=== PATIENT | male | born 1960 | race Caucasian/White ===

== ENCOUNTER 2019-12-17 21:57 | Observation (INO) ==
[2019-12-17] MEDS ORDERED: MORPHINE 4 MG/1 ML VIAL IV STA (22:17)
[2019-12-17] MEDS ORDERED: ASPIRIN 325 MG TABLET PO STA (22:17)
[2019-12-17] MEDS ORDERED: ONDANSETRON 4 MG/2 ML VIAL IV STA (22:17)
[2019-12-17 22:45] LABS: Basophils # 0.1 10*3/uL (0.0-0.2); Eosinophils # 0.2 10*3/uL (0.0-0.87); Eosinophils % 3.5 % (0.00-10.9); Hematocrit 40.5 VOL% (42.0-52.0); Hemoglobin 13.9 GM/DL (14.0-18.0); Immature Granulocytes Absolute 0.07 #; Lymphocytes % 29.2 % (21.2-54.2); Mean Corpuscular HGB Conc 34.3 GM/DL (32-36); Mean Corpuscular Volume 102.3 FL (87-102); Mean Platelet Volume 10.8 FL (9.6-12.0); Monocytes % 6.5 % (1.7-12.7); Neutrophils % 58.8 % (38.7-73.9); Platelet Count 221 T/CUMM (130-400); Red Blood Count 3.96 MC/CUMM (3.8-5.5); Red Cell Distribution Width 11.7 % (9.3-17.3); White Blood Count 6.8 T/CUMM (4-12)
[2019-12-17 22:54] LABS: PT Patient Result 10.9 SECS (9.8-11.9)
[2019-12-17 22:59] LABS: Albumin 3.7 G/DL (3.4-5.0); Bilirubin,Total 0.4 MG/DL (0.2-1.0); Calcium 8.7 MG/DL (8.5-10.1); Osmolality,Calculated 277.5 MOS/KG (273-304); Total Protein 6.7 G/DL (6.4-8.3)
[2019-12-17 23:18] LABS: Apearance,Urine CLEAR (Clear); Bacteria,Urine Occasional /HPF (Few); Bilirubin,Urine Negative (Negative); Blood, Urine Negative (Negative); Glucose,Urine (UA) Negative (Negative); Hyaline Casts,Urine 1 /LPF (0-3); Ketones,Urine Negative (Negative); Mucus,Urine Occasional /LPF (Occasional); Nitrite,Urine Negative (Negative); Protein,Urine Negative; RBC,Urine 1 /HPF (0-4); Squamous Epithelial Cell,Urine Occasional /HPF (0-10); Urine Color Yellow (Yellow); Urine Specific Gravity 1.013 (1.001-1.035); Urine Urobilinogen < 2.0 EU/DL (0.2-1.0); WBC,Urine 2 /HPF (0-6)
[2019-12-17 23:22] LABS: Barbiturates Screen,Urine Negative (Negative); Benzodiazepines Screen,Urine Negative (Negative); Cannabinoid Screen,Urine Negative (Negative); Opiate Screen,Urine Negative (Negative); Phencyclidine Screen,Urine Negative (Negative)
[2019-12-17] MEDS: NITROGLYCERIN SL 0.4 MG TABLET SL PRN (23:51)
[2019-12-18] MEDS: NITROGLYCERIN SL 0.4 MG TABLET SL PRN (01:11)
[2019-12-18] MEDS ORDERED: hydrALAZINE 20 MG/1 ML VIAL IV PRN (01:14)
[2019-12-18] MEDS ORDERED: ACETAMINOPHEN 325 MG TABLET PO PRN (01:14)
[2019-12-18] MEDS ORDERED: ZALEPLON 5 MG CAPSULE PO PRN (01:14)
[2019-12-18] MEDS ORDERED: DOCUSATE SODIUM 100 MG CAPSULE PO PRN (01:14)
[2019-12-18] MEDS ORDERED: ONDANSETRON 4 MG/2 ML VIAL IV PRN (01:14)
[2019-12-18] MEDS: MORPHINE 4 MG/1 ML VIAL IV PRN ×2 (01:49→09:34)
[2019-12-18] MEDS ORDERED: ENOXAPARIN 100 MG/ML SYRINGE SUBCUT SCH (02:00)
[2019-12-18 04:10] LABS: Eosinophils 2 % (0-10); Lymphocytes 31 % (20-55); Segmented Neutrophils 61 % (50-85); Total Cells Counted 100
[2019-12-18 04:15] LABS: Basophils # 0.1 10*3/uL (0.0-0.2); Basophils % 0.9 % (0.0-0.8); Eosinophils # 0.2 10*3/uL (0.0-0.87); Eosinophils % 3.7 % (0.00-10.9); Hematocrit 41.9 VOL% (42.0-52.0); Immature Granulocytes % 0.7 %; Immature Granulocytes Absolute 0.04 #; Lymphocytes % 35.5 % (21.2-54.2); Mean Corpuscular HGB Conc 33.4 GM/DL (32-36); Mean Platelet Volume 10.9 FL (9.6-12.0); Monocytes % 7.5 % (1.7-12.7); Neutrophils % 51.7 % (38.7-73.9); Platelet Count 205 T/CUMM (130-400); Red Blood Count 4.03 MC/CUMM (3.8-5.5); Red Cell Distribution Width 11.8 % (9.3-17.3); White Blood Count 5.7 T/CUMM (4-12)
[2019-12-18 04:16] LABS: Atypical Lymphocytes Few
[2019-12-18 04:17] LABS: Hypochromasia Slight; Platelet Estimate Normal
[2019-12-18 04:39] LABS: Calcium 9.3 MG/DL (8.5-10.1); Osmolality,Calculated 275.5 MOS/KG (273-304); Risk Ratio 2.47; Thyroid Stimulating Hormone 6.07 uIU/ml (0.358-3.74); VLDL CHOLESTEROL 13.6 MG/DL
[2019-12-18] MEDS ORDERED: CLOPIDOGREL 75 MG TABLET PO SCH (09:00)
[2019-12-18] MEDS ORDERED: carvediloL 3.125 MG TABLET PO SCH (09:00)
[2019-12-18] MEDS ORDERED: ASPIRIN CHEW 81 MG TABLET PO SCH (09:00)
[2019-12-18] MEDS ORDERED: buPROPion SR 150 MG TABLET PO SCH (10:30)
[2019-12-18] MEDS ORDERED: ESCITALOPRAM 10 MG TABLET PO SCH (10:30)
[2019-12-18 12:03] VITALS: BP 140/85
[2019-12-18] MEDS ORDERED: GABAPENTIN 600 MG TABLET PO SCH ×2 (15:00)
[2019-12-18] MEDS ORDERED: busPIRone 10 MG TABLET PO SCH ×2 (15:00)
[2019-12-18] MEDS ORDERED: traZODone 50 MG TABLET PO SCH ×2 (21:00)
[2019-12-18] MEDS ORDERED: ARIPiprazole 10 MG TABLET PO SCH ×2 (21:00)
[2019-12-18] MEDS ORDERED: ATORVASTATIN 10 MG TABLET PO SCH (21:00)
[2019-12-19] MEDS ORDERED: buPROPion SR 150 MG TABLET PO SCH (09:00)
[2019-12-19] MEDS ORDERED: ESCITALOPRAM 10 MG TABLET PO SCH (09:00)
== END 2019-12-18 13:58 ==
LOC: N.ED 21:57 → N.EDINP 21:57 → N.CC 12-18 00:42
PROVIDERS: ADMIT Family Medicine; ATTEND Family Medicine

== ENCOUNTER 2020-01-20 22:05 | Inpatient (IN) ==
[2020-01-20 23:14] LABS: Basophils % 0.5 % (0.0-0.8); Eosinophils % 0.9 % (0.00-10.9); Hematocrit 37.5 VOL% (42.0-52.0); Hemoglobin 12.8 GM/DL (14.0-18.0); Immature Granulocytes % 0.6 %; Lymphocytes # 1.5 10*3/uL (1.4-4.0); Lymphocytes % 22.5 % (21.2-54.2); Mean Corpuscular HGB Conc 34.1 GM/DL (32-36); Mean Corpuscular Volume 99.7 FL (87-102); Mean Platelet Volume 10.5 FL (9.6-12.0); Monocytes % 5.9 % (1.7-12.7); Neutrophils % 69.6 % (38.7-73.9); Platelet Count 191 T/CUMM (130-400); Red Blood Count 3.76 MC/CUMM (3.8-5.5); Red Cell Distribution Width 12.2 % (9.3-17.3); White Blood Count 6.6 T/CUMM (4-12)
[2020-01-20] MEDS ORDERED: SODIUM CHLORIDE 0.9% 1,000 ML IV STA (23:14)
[2020-01-20 23:23] LABS: Albumin 3.5 G/DL (3.4-5.0); Bilirubin,Total 0.8 MG/DL (0.2-1.0); Calcium 8.6 MG/DL (8.5-10.1); Osmolality,Calculated 278.5 MOS/KG (273-304); Total Protein 6.4 G/DL (6.4-8.3)
[2020-01-20] MEDS ORDERED: ENOXAPARIN 30 MG/0.3 ML SYRINGE SUBCUT STA (23:29)
[2020-01-20] MEDS ORDERED: MORPHINE 4 MG/1 ML VIAL IV STA (23:29)
[2020-01-20] MEDS ORDERED: ONDANSETRON 4 MG/2 ML VIAL IV ONE (23:29)
[2020-01-20] MEDS ORDERED: ENOXAPARIN 100 MG/ML SYRINGE SUBCUT ONE (23:35)
[2020-01-21] MEDS ORDERED: MORPHINE 4 MG/1 ML VIAL IV STA (00:35)
[2020-01-21] MEDS ORDERED: ONDANSETRON 4 MG/2 ML VIAL IV ONE (00:35)
[2020-01-21] MEDS ORDERED: NITROGLYCERIN DRIP 50 MG/250 ML BOTTLE IV SCH (01:00)
[2020-01-21] MEDS ORDERED: ACETAMINOPHEN 325 MG TABLET PO PRN (01:31)
[2020-01-21] MEDS ORDERED: DOCUSATE SODIUM 100 MG CAPSULE PO PRN (01:40)
[2020-01-21] MEDS ORDERED: NITROGLYCERIN SL 0.4 MG TABLET SL PRN (01:40)
[2020-01-21] MEDS ORDERED: SODIUM CHLORIDE 0.45% 1,000 ML IV SCH (02:00)
[2020-01-21] MEDS ORDERED: METOPROLOL TARTRATE 25 MG TABLET PO SCH (02:00)
[2020-01-21] MEDS ORDERED: NITROGLYCERIN DRIP 50 MG/250 ML BOTTLE IV PRN (02:58)
[2020-01-21] MEDS: MORPHINE 4 MG/1 ML VIAL IV PRN ×3 (03:30→16:05)
[2020-01-21 04:22] LABS: Basophils % 0.5 % (0.0-0.8); Eosinophils # 0.1 10*3/uL (0.0-0.87); Eosinophils % 2.5 % (0.00-10.9); Hematocrit 38.3 VOL% (42.0-52.0); Immature Granulocytes % 0.9 %; Immature Granulocytes Absolute 0.05 #; Lymphocytes # 1.7 10*3/uL (1.4-4.0); Lymphocytes % 29.9 % (21.2-54.2); Mean Corpuscular HGB Conc 33.9 GM/DL (32-36); Mean Corpuscular Volume 100.5 FL (87-102); Mean Platelet Volume 10.3 FL (9.6-12.0); Monocytes % 6.1 % (1.7-12.7); Neutrophils % 60.1 % (38.7-73.9); Platelet Count 176 T/CUMM (130-400); Red Blood Count 3.81 MC/CUMM (3.8-5.5); Red Cell Distribution Width 12.2 % (9.3-17.3); White Blood Count 5.6 T/CUMM (4-12)
[2020-01-21 04:51] LABS: Calcium 8.4 MG/DL (8.5-10.1); Osmolality,Calculated 271.7 MOS/KG (273-304); Risk Ratio 2.07; VLDL CHOLESTEROL 12.6 MG/DL
[2020-01-21 05:17] LABS: INR 1.1; PT Patient Result 11.6 SECS (9.8-11.9); Partial Thromboplastin Time 35.3 SECS (23.9-33.8)
[2020-01-21] MEDS: HEPARIN DRIP 25,000 UNITS/500 ML PREMIX IV SCH (05:26)
[2020-01-21] MEDS: NITROGLYCERIN 2% OINT 1 INCH/GM PACK TOP SCH ×3 (06:28→17:55)
[2020-01-21 06:33] LABS: Eosinophils 4 % (0-10); Lymphocytes 32 % (20-55); Segmented Neutrophils 62 % (50-85); Total Cells Counted 100
[2020-01-21 06:34] LABS: Platelet Estimate Normal
[2020-01-21 06:35] LABS: Macrocytosis Slight; Polychromasia Slight
[2020-01-21] MEDS: PANTOPRAZOLE 40 MG TABLET PO SCH (08:20)
[2020-01-21] MEDS: GABAPENTIN 600 MG TABLET PO SCH ×3 (08:20→21:45)
[2020-01-21] MEDS: CLOPIDOGREL 75 MG TABLET PO SCH (08:20)
[2020-01-21] MEDS: ASPIRIN EC 81 MG TABLET PO SCH (08:20)
[2020-01-21] MEDS: THIAMINE 100 MG TABLET PO SCH (08:20)
[2020-01-21] MEDS: FOLIC ACID 1 MG TABLET PO SCH (08:20)
[2020-01-21] MEDS: ESCITALOPRAM 10 MG TABLET PO SCH (08:20)
[2020-01-21] MEDS: LOSARTAN 25 MG TABLET PO SCH ×2 (09:35→21:44)
[2020-01-21] MEDS: carvediloL 3.125 MG TABLET PO SCH ×2 (09:35→17:55)
[2020-01-21] MEDS: oxyCODONE/ACETAMINOPHEN 5-325 MG TABLET PO PRN ×2 (09:35→18:20)
[2020-01-21 11:04] LABS: INR 1.1; PT Patient Result 11.5 SECS (9.8-11.9)
[2020-01-21] MEDS: busPIRone 10 MG TABLET PO SCH ×3 (11:41→21:44)
[2020-01-21] MEDS: buPROPion SR 150 MG TABLET PO SCH (11:41)
[2020-01-21] MEDS ORDERED: POTASSIUM CHLORIDE 20 MEQ TABLET PO ONE (11:44)
[2020-01-21] MEDS: POTASSIUM CHLORIDE 20 MEQ TABLET PO SCH (12:08)
[2020-01-21] MEDS ORDERED: ALUM/MAG/SIMETH/LIDO VISC 1:1 30 ML BOTTLE PO ONE (13:46)
[2020-01-21] MEDS ORDERED: MAGNESIUM SULF RIDER 2 GM in PREMIX 1 EACH IV PRN (13:54)
[2020-01-21] MEDS ORDERED: POTASSIUM CHLORIDE RIDER 10 MEQ in PREMIX 1 EACH IV PRN (13:54)
[2020-01-21] MEDS: FUROSEMIDE 20 MG/2 ML VIAL IV SCH (17:55)
[2020-01-21] MEDS ORDERED: ATORVASTATIN 10 MG TABLET PO SCH (21:00)
[2020-01-21] MEDS: traZODone 50 MG TABLET PO SCH (21:45)
[2020-01-21] MEDS: ARIPiprazole 10 MG TABLET PO SCH (21:45)
[2020-01-22] MEDS: NITROGLYCERIN 2% OINT 1 INCH/GM PACK TOP SCH ×4 (00:11→19:43)
[2020-01-22 04:56] LABS: Basophils # 0.1 10*3/uL (0.0-0.2); Basophils % 0.9 % (0.0-0.8); Eosinophils # 0.2 10*3/uL (0.0-0.87); Eosinophils % 2.7 % (0.00-10.9); Hematocrit 39.3 VOL% (42.0-52.0); Hemoglobin 13.5 GM/DL (14.0-18.0); Immature Granulocytes Absolute 0.06 #; Lymphocytes # 1.8 10*3/uL (1.4-4.0); Lymphocytes % 30.5 % (21.2-54.2); Mean Corpuscular HGB Conc 34.4 GM/DL (32-36); Mean Corpuscular Volume 100.3 FL (87-102); Mean Platelet Volume 10.2 FL (9.6-12.0); Monocytes % 6.5 % (1.7-12.7); Neutrophils % 58.4 % (38.7-73.9); Platelet Count 177 T/CUMM (130-400); Red Blood Count 3.92 MC/CUMM (3.8-5.5); Red Cell Distribution Width 12.3 % (9.3-17.3); White Blood Count 5.9 T/CUMM (4-12)
[2020-01-22] MEDS: ONDANSETRON 4 MG/2 ML VIAL IV PRN (05:08)
[2020-01-22] MEDS ORDERED: HEPARIN 5,000 UNIT/1 ML VIAL IV PRN (05:10)
[2020-01-22 05:19] LABS: Anisocytosis 1+; Band Neutrophils 2 % (0-10); Eosinophils 2 % (0-10); Lymphocytes 30 % (20-55); Macrocytosis 1+; Segmented Neutrophils 60 % (50-85); Total Cells Counted 100
[2020-01-22 05:22] LABS: Platelet Estimate Normal
[2020-01-22] MEDS: HEPARIN DRIP 25,000 UNITS/500 ML PREMIX IV SCH (05:22)
[2020-01-22 05:28] LABS: Calcium 8.8 MG/DL (8.5-10.1); Osmolality,Calculated 279.3 MOS/KG (273-304)
[2020-01-22] MEDS: carvediloL 3.125 MG TABLET PO SCH ×2 (09:13→16:10)
[2020-01-22] MEDS: CLOPIDOGREL 75 MG TABLET PO SCH (09:13)
[2020-01-22] MEDS: PANTOPRAZOLE 40 MG TABLET PO SCH (09:13)
[2020-01-22] MEDS: LOSARTAN 25 MG TABLET PO SCH ×2 (09:14→21:53)
[2020-01-22] MEDS: ASPIRIN EC 81 MG TABLET PO SCH (09:14)
[2020-01-22] MEDS ORDERED: ONDANSETRON 4 MG/2 ML VIAL IV ONE (10:00)
[2020-01-22] MEDS ORDERED: DIAZEPAM 5 MG TABLET PO ONE (10:00)
[2020-01-22] MEDS ORDERED: diphenhydrAMINE CAP 25 MG CAPSULE PO ONE (10:00)
[2020-01-22] MEDS ORDERED: NITROGLYCERIN DRIP 50 MG/250 ML BOTTLE IV ONE (10:54)
[2020-01-22] MEDS ORDERED: HEPARIN/NACL 0.9% 2 UNITS/ML 1,000 ML IV ONE (10:54)
[2020-01-22] MEDS ORDERED: VERAPAMIL 5 MG/2 ML VIAL ONE (10:54)
[2020-01-22] MEDS ORDERED: LIDOCAINE 1% 20 ML VIAL ONE (10:54)
[2020-01-22] MEDS ORDERED: HYDROmorphone 2 MG/1 ML VIAL ONE (11:12)
[2020-01-22] MEDS ORDERED: MIDAZOLAM 2 MG/2 ML VIAL ONE (11:13)
[2020-01-22] MEDS ORDERED: HEPARIN 5,000 UNIT/1 ML VIAL ONE (11:48)
[2020-01-22] MEDS ORDERED: EPTIFIBATIDE 20,000 MCG/10 ML VIAL ONE ×2 (12:02→12:13)
[2020-01-22] MEDS ORDERED: CLOPIDOGREL 300 MG TABLET ONE (12:18)
[2020-01-22] MEDS ORDERED: SODIUM CHLORIDE 0.9% 1,000 ML IV SCH (12:30)
[2020-01-22] MEDS ORDERED: LORazepam 2 MG/1 ML VIAL IV PRN (13:00)
[2020-01-22] MEDS: FUROSEMIDE 20 MG/2 ML VIAL IV SCH ×2 (13:29→16:10)
[2020-01-22] MEDS: busPIRone 10 MG TABLET PO SCH ×3 (13:30→21:53)
[2020-01-22] MEDS: FOLIC ACID 1 MG TABLET PO SCH (13:31)
[2020-01-22] MEDS: POTASSIUM CHLORIDE 20 MEQ TABLET PO SCH (13:31)
[2020-01-22] MEDS: THIAMINE 100 MG TABLET PO SCH (13:32)
[2020-01-22] MEDS: GABAPENTIN 600 MG TABLET PO SCH ×3 (13:32→21:55)
[2020-01-22] MEDS: buPROPion SR 150 MG TABLET PO SCH (13:32)
[2020-01-22] MEDS: ESCITALOPRAM 10 MG TABLET PO SCH (13:44)
[2020-01-22] MEDS: ENOXAPARIN 40 MG/0.4 ML SYRINGE SUBCUT SCH (16:09)
[2020-01-22] MEDS: oxyCODONE/ACETAMINOPHEN 5-325 MG TABLET PO PRN (16:15)
[2020-01-22] MEDS: MORPHINE 4 MG/1 ML VIAL IV PRN (20:15)
[2020-01-22] MEDS: ATORVASTATIN 40 MG TABLET PO SCH (21:53)
[2020-01-22] MEDS: traZODone 50 MG TABLET PO SCH (21:53)
[2020-01-22] MEDS: ARIPiprazole 10 MG TABLET PO SCH (21:54)
[2020-01-23] MEDS: NITROGLYCERIN 2% OINT 1 INCH/GM PACK TOP SCH ×3 (00:13→13:03)
[2020-01-23 05:59] LABS: Basophils % 0.6 % (0.0-0.8); Eosinophils # 0.2 10*3/uL (0.0-0.87); Eosinophils % 3.3 % (0.00-10.9); Hematocrit 41.1 VOL% (42.0-52.0); Immature Granulocytes % 1.2 %; Immature Granulocytes Absolute 0.06 #; Lymphocytes # 1.4 10*3/uL (1.4-4.0); Lymphocytes % 26.3 % (21.2-54.2); Mean Corpuscular HGB Conc 34.1 GM/DL (32-36); Mean Corpuscular Volume 100.2 FL (87-102); Mean Platelet Volume 10.1 FL (9.6-12.0); Monocytes % 8.1 % (1.7-12.7); Neutrophils % 60.5 % (38.7-73.9); Platelet Count 176 T/CUMM (130-400); Red Cell Distribution Width 12.3 % (9.3-17.3); White Blood Count 5.2 T/CUMM (4-12)
[2020-01-23 06:20] LABS: Atypical Lymphocytes Few; Band Neutrophils 2 % (0-10); Eosinophils 1 % (0-10); Lymphocytes 22 % (20-55); Segmented Neutrophils 67 % (50-85); Total Cells Counted 100
[2020-01-23 06:21] LABS: Calcium 9.1 MG/DL (8.5-10.1); Microcytosis Slight; Osmolality,Calculated 280.3 MOS/KG (273-304); Platelet Estimate Adequate
[2020-01-23 06:31] LABS: Blood Urea Nitrogen 12 MG/DL (7-18); Calcium 9.4 MG/DL (8.5-10.1); Estimated Glom Filtration Rate 97 ML/MIN; Glucose 104 MG/DL (74-106); Osmolality,Calculated 280.3 MOS/KG (273-304)
[2020-01-23 06:32] LABS: Troponin I 0.141 NG/ML (0.00-0.045)
[2020-01-23] MEDS: CLOPIDOGREL 75 MG TABLET PO SCH (08:33)
[2020-01-23] MEDS: buPROPion SR 150 MG TABLET PO SCH (08:33)
[2020-01-23] MEDS: LOSARTAN 25 MG TABLET PO SCH ×2 (08:33→21:25)
[2020-01-23] MEDS: busPIRone 10 MG TABLET PO SCH ×3 (08:33→21:25)
[2020-01-23] MEDS: PANTOPRAZOLE 40 MG TABLET PO SCH (08:34)
[2020-01-23] MEDS: THIAMINE 100 MG TABLET PO SCH (08:34)
[2020-01-23] MEDS: ESCITALOPRAM 10 MG TABLET PO SCH (08:34)
[2020-01-23] MEDS: POTASSIUM CHLORIDE 20 MEQ TABLET PO SCH (08:34)
[2020-01-23] MEDS: carvediloL 3.125 MG TABLET PO SCH ×2 (08:34→17:07)
[2020-01-23] MEDS: FOLIC ACID 1 MG TABLET PO SCH (08:34)
[2020-01-23] MEDS: GABAPENTIN 600 MG TABLET PO SCH ×3 (08:34→21:25)
[2020-01-23] MEDS: ASPIRIN EC 81 MG TABLET PO SCH (08:34)
[2020-01-23] MEDS: FUROSEMIDE 20 MG/2 ML VIAL IV SCH ×2 (08:34→17:07)
[2020-01-23] MEDS: ONDANSETRON 4 MG/2 ML VIAL IV PRN (08:43)
[2020-01-23] MEDS: ISOSORBIDE MONONITRATE 30 MG TABLET PO SCH (12:52)
[2020-01-23] MEDS: ENOXAPARIN 40 MG/0.4 ML SYRINGE SUBCUT SCH (14:30)
[2020-01-23] MEDS: oxyCODONE/ACETAMINOPHEN 5-325 MG TABLET PO PRN (17:16)
[2020-01-23] MEDS ORDERED: LOSARTAN 50 MG TABLET PO SCH (21:00)
[2020-01-23] MEDS: ATORVASTATIN 40 MG TABLET PO SCH (21:24)
[2020-01-23] MEDS: ARIPiprazole 10 MG TABLET PO SCH (21:25)
[2020-01-23] MEDS: traZODone 50 MG TABLET PO SCH (21:25)
[2020-01-24 06:54] LABS: Basophils # 0.1 10*3/uL (0.0-0.2); Basophils % 0.8 % (0.0-0.8); Eosinophils # 0.2 10*3/uL (0.0-0.87); Eosinophils % 3.5 % (0.00-10.9); Hematocrit 41.8 VOL% (42.0-52.0); Hemoglobin 14.3 GM/DL (14.0-18.0); Immature Granulocytes % 1.3 %; Immature Granulocytes Absolute 0.08 #; Lymphocytes % 33.1 % (21.2-54.2); Mean Corpuscular HGB Conc 34.2 GM/DL (32-36); Mean Corpuscular Volume 99.3 FL (87-102); Mean Platelet Volume 10.7 FL (9.6-12.0); Monocytes % 9.4 % (1.7-12.7); Neutrophils % 51.9 % (38.7-73.9); Platelet Count 182 T/CUMM (130-400); Red Blood Count 4.21 MC/CUMM (3.8-5.5); Red Cell Distribution Width 12.4 % (9.3-17.3); White Blood Count 6.1 T/CUMM (4-12)
[2020-01-24 07:12] LABS: Calcium 9.1 MG/DL (8.5-10.1); Osmolality,Calculated 283.1 MOS/KG (273-304)
[2020-01-24 07:24] LABS: Anisocytosis 1+; Atypical Lymphocytes Few; Band Neutrophils 2 % (0-10); Eosinophils 5 % (0-10); Lymphocytes 31 % (20-55); Macrocytosis 1+; Nucleated Red Blood Cells 1 (0-5); Platelet Estimate Normal; Segmented Neutrophils 49 % (50-85); Total Cells Counted 100
[2020-01-24 08:04] VITALS: BP 119/58
[2020-01-24] MEDS: LOSARTAN 25 MG TABLET PO SCH (09:30)
[2020-01-24] MEDS: carvediloL 3.125 MG TABLET PO SCH (09:30)
[2020-01-24] MEDS: GABAPENTIN 600 MG TABLET PO SCH (09:30)
[2020-01-24] MEDS: PANTOPRAZOLE 40 MG TABLET PO SCH (09:30)
[2020-01-24] MEDS: CLOPIDOGREL 75 MG TABLET PO SCH (09:30)
[2020-01-24] MEDS: ESCITALOPRAM 10 MG TABLET PO SCH (09:30)
[2020-01-24] MEDS: POTASSIUM CHLORIDE 20 MEQ TABLET PO SCH (09:30)
[2020-01-24] MEDS: buPROPion SR 150 MG TABLET PO SCH (09:30)
[2020-01-24] MEDS: ASPIRIN EC 81 MG TABLET PO SCH (09:30)
[2020-01-24] MEDS: THIAMINE 100 MG TABLET PO SCH (09:30)
[2020-01-24] MEDS: FOLIC ACID 1 MG TABLET PO SCH (09:30)
[2020-01-24] MEDS: ISOSORBIDE MONONITRATE 30 MG TABLET PO SCH (09:30)
[2020-01-24] MEDS: busPIRone 10 MG TABLET PO SCH (09:35)
[2020-01-24] MEDS: FUROSEMIDE 20 MG/2 ML VIAL IV SCH (09:52)
[2020-01-25] MEDS ORDERED: FUROSEMIDE 40 MG TABLET PO SCH (09:00)
== END 2020-01-24 12:43 | disposition home or self-care (01) | DRG 247 ==
LOC: N.ED 22:05 → SUATTDRO 01-21 02:15 → N.EDINP 01-21 02:15 → N.CC 01-21 02:37 → N.TELES 01-21 18:36
PROVIDERS: ADMIT Internal Medicine; ATTEND Internal Medicine